=== PATIENT | male | born 1965 | race Caucasian/White ===

== ENCOUNTER 2021-09-09 09:52 | Outpatient (CLI) | payer OTHER, SELFPAY ==
--- NOTE | ~2021-09-09 | CT_ITS ---
EXAMINATION: CT lung screening DATE: 09/09/2021 10:19 INDICATION: History of tobacco use. They pain. TECHNIQUE: Computed tomography (CT) of the chest was performed without intravenous contrast. The dose -length product was 134.84 mGy-cm. Automated exposure control and iterative reconstruction technique were employed. COMPARISON: No prior studies for comparison. FINDINGS: No thoracic lymphadenopathy. Heart size normal. There is atherosclerosis of the coronary ar teries. The upper abdomen is unremarkable. No endobronchial lesions. No pneumothorax. No focal airspa ce consolidation. Mild emphysema. No pulmonary nodules. Mild thoracic spondylosis. No acute osseous a bnormality. Visualized aspects of the upper abdomen are unremarkable. IMPRESSION: 1. Lung-RADS category 1: Negative. Continue annual screening with noncontrast low-dose chest CT in 12 months. Reviewed, dictated and finalized at location A. IMPRESSION: 1. Lung-RADS category 1: Negative. Continue annual screening with noncontrast l ow-dose chest CT in 12 months.
== END 2021-09-09 09:53 | disposition home or self-care (01) ==
PROVIDERS: PCP Internal Medicine; Visit Provider Nurse Practitioner
DX: Z12.2 Encounter for screening for malignant neoplasm of respiratory organs (principal); Z87.891 Personal history of nicotine dependence
CPT/HCPCS: 71271

== ENCOUNTER 2024-12-12 06:11 | Day surgery (SDC) | payer OTHER, SELFPAY ==
[2024-05-20 09:15] VITALS: BMI 31.4
[2024-11-29 11:27] VITALS: BMI 31.6
[2024-12-12 06:45] VITALS: BMI 32.4
[2024-12-12 06:56] VITALS: BP 123/90; PULSE 73; RESP 16; TEMP 36.4; O2SAT 96
--- NOTE | 2024-12-12 07:10 | P.PNAN_ITS ---
Anes - Initial Pre Proc Eval Procedure: Operation Date: 12/12/24 08:00 Proposed Procedures p Screening Colonoscopy - Chace Eaton MD Date/Time: 12/12/24 07:10 Surgeon: Chace Eaton MD Pre Op Diagnosis: Neoplasm Screening Patient Data Age: 59 Gender: M Height: 1.78 m Weight: 102.5 kg Last Vital Signs Temp 97.5 F L 12/12/24 06:56 Pulse 73 12/12/24 06:56 Resp 16 12/12/24 06:56 BP 123/90 12/12/24 06:56 Pulse Ox 96 12/12/24 06:56 O2 Del Method Room Air 12/12/24 06:56 Allergies Allergy/AdvReac Type Severity Reaction Status Date / Time No Known Allergies Allergy Verified 12/12/24 06:45 Home Medications ?Medication ?Instructions ?Recorded ?Confirmed ?Type fluticasone 100 mcg-salmeterol 50 1 ea inhalation Q12H PRN asthma 04/28/23 12/12/24 Rx mcg/dose blistr powdr for #60 ea inhalation (Advair Diskus) albuterol sulfate 90 mcg/actuation 1 inh inhalation Q4 H PRN shortness 11/29/24 12/12/24 History aerosol inhaler of breath or wheezing tadalafil 20 mg tablet 20 mg PO DAILY PRN sexual ac tivity 11/29/24 12/12/24 History valacyclovir 500 mg tablet 500 mg PO Q12H PRN cold sor es 11/29/24 12/12/24 History Patient hx anesthesia problems: none Family hx anesthesia problems: none Results Review: All pre-operative results and documents have been reviewed as part of the pre- operative evaluation. 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 Herpes Allergies Asthma Cat scratch fever Diverticulitis Erectile dysfunction Genital herpes in men Family History Family History Mother COPD (chronic obstructive pulmonary disease) Kidney stone Other Diabetes mellitus Family history of cardiovascular disease Hypertension Social History Social History (Updated 05/13/24 @ 09:13 by Katherine Carrasquillo CMA) Smoking status: Current some day smoker Tobacco type: cigars Smokeless tobacco user: dissolvable tobacco Alcohol intake: current Drinks per week: 2 Alcohol use details: 1-2 drinks a week Substance use: never Substance use type: does not use Lack of Transportation: No Lack of Food: Never True Current Housing: I Have Housing Concerned About Future Housing: No Difficulty Paying Gas/Electric Bills: No Difficulty Paying for Meds: No Currently Unemployed: No Education: Trade/Vocational Certificate Difficulty w/ Childcare or Family Care: No Living arrangements: alone Spiritual care concerns: No Anes - Eval Final PreProcedure Day of Procedure 12/12/24 07:10 Heart: regular rate and rhythm Lungs: clear to auscultation Airway: Mallampati scale class IV Neurological: alert and oriented Last oral intake: >/= 8 hours Anesthetic plan: proceed Anesthesia type and monitoring: monitored anesthesia care Results Review: All pre-operative results and documents have been reviewed as part of the pre- operative evaluation. Informed Consent: The patient's anesthetic plan and its attendant risks and benefits were discussed with the patient/family/POA. Questions were solicited and answers provided to the satisfaction of the patient/family/POA.
[2024-12-12] MEDS: LACTATED RINGERS 1,000 ML 150 ML IV CONT (07:11)
--- NOTE | 2024-12-12 08:04 | P.HP_ITS ---
H&P: HPI History of Present Illness Date/Time: 12/12/24 08:04 Chief Complaint: Screening colonoscopy Narrative: This is the patient's first colonoscopy. There are no GI symptoms and there is no family history of colorectal cancer. 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 Herpes Allergies Asthma Cat scratch fever Diverticulitis Erectile dysfunction Genital herpes in men Family History Family History Mother COPD (chronic obstructive pulmonary disease) Kidney stone Other Diabetes mellitus Family history of cardiovascular disease Hypertension Social History Social History (Updated 05/13/24 @ 09:13 by Katherine Carrasquillo CMA) Smoking status: Current some day smoker Tobacco type: cigars Smokeless tobacco user: dissolvable tobacco Alcohol intake: current Drinks per week: 2 Alcohol use details: 1-2 drinks a week Substance use: never Substance use type: does not use Lack of Transportation: No Lack of Food: Never True Current Housing: I Have Housing Concerned About Future Housing: No Difficulty Paying Gas/Electric Bills: No Difficulty Paying for Meds: No Currently Unemployed: No Education: Trade/Vocational Certificate Difficulty w/ Childcare or Family Care: No Living arrangements: alone Spiritual care concerns: No Meds Home Medications and Allergies Home Medications ?Medication ?Instructions ?Recorded ?Confirmed ?Type fluticasone 100 mcg-salmeterol 50 1 ea inhalation Q12H PRN asthma 04/28/23 12/12/24 Rx mcg/dose blistr powdr for #60 ea inhalation (Advair Diskus) albuterol sulfate 90 mcg/actuation 1 inh inhalation Q4 H PRN shortness 11/29/24 12/12/24 History aerosol inhaler of breath or wheezing tadalafil 20 mg tablet 20 mg PO DAILY PRN sexual ac tivity 11/29/24 12/12/24 History valacyclovir 500 mg tablet 500 mg PO Q12H PRN cold sor es 11/29/24 12/12/24 History Allergies Allergy/AdvReac Type Severity Reaction Status Date / Time No Known Allergies Allergy Verified 12/12/24 06:45 Vital Signs Vital Signs - 24 hr 12/12/24 06:56 Temperature 97.5 F L Pulse Rate 73 Respiratory Rate 16 Blood Pressure 123/90 Pulse Oximetry 96 Oxygen Delivery Room Air Exam Const: General: cooperative and healthy appearing Resp: Effort & Inspection: normal respiratory effort and able to speak in complete sentences Auscultation: clear to auscultation bilaterally Cardio: Rate: regular rate Rhythm: regular rhythm GI: Inspection: normal to inspection GI Palp: No No hepatosplenomegaly present Auscultation: normal bowel sounds Rectal Exam: deferred Skin: General skin exam: normal color Psych: Appearance: grossly normal Mental Status: mental status grossly normal Assessment and Plan Assessment and plan (1) Screening for colon cancer: Code(s): Z12.11 - Encounter for screening for malignant neoplasm of colon Status: Acute Assessment and Plan: The patient is deemed a good candidate for the procedure. Consent signed. Will proceed.
--- NOTE | 2024-12-12 08:30 | WPDANESPN ---
Anes - Prog Note Post-Op Date/Time: 12/12/24 08:30 Vital Signs: Last Vital Signs Temp 97.5 F L 12/12/24 06:56 Pulse 73 12/12/24 06:56 Resp 16 12/12/24 06:56 BP 123/90 12/12/24 06:56 Pulse Ox 96 12/12/24 06:56 O2 Del Method Room Air 12/12/24 06:56 Pain Score (VAS): no Patient Feedback: Patient satisfied with anesthetic care.
[2024-12-12 08:34] VITALS: BP 137/85; PULSE 86; RESP 15; O2SAT 96
[2024-12-12 08:44] VITALS: BP 146/93; PULSE 75; RESP 16; O2SAT 95
[2024-12-12 08:54] VITALS: BP 120/73; PULSE 67; RESP 18; O2SAT 95
== END 2024-12-12 09:17 | disposition home or self-care (01) ==
PROVIDERS: PCP Internal Medicine; Visit Provider Internal Medicine Gastroenterology
PROC: 0DJD8ZZ Inspection of Lower Intestinal Tract, Via Natural or Artificial Opening Endoscopic (ICD-10-PCS; CPT 45378; principal; 2024-12-12 08:00)
DX: Z12.11 Encounter for screening for malignant neoplasm of colon (principal); D12.5 Benign neoplasm of sigmoid colon; K63.5 Polyp of colon; K57.30 Diverticulosis of large intestine without perforation or abscess without bleeding
CPT/HCPCS: 45385

== ENCOUNTER 2024-12-12 09:48 | Outpatient (NON) | payer OTHER, SELFPAY ==
--- NOTE | 2024-12-12 | S_PTH ---
PATIENT: Moris Gibson Jr. LOC: [facility] #:[id number] AGE/SX: 59/M ROOM: RE12/12/[address]: Chace Eaton MD : 1965 BED: DIS: 12/12/2024 SPEC #: [id number] RECD: 12/13/24 09:54 STATUS: CHRIS REQ #: [id number] MAXIMO: 12/12/24 00:[address]: Chace Eaton DEPT: [facility] Surgical RECD BY: Josue Mittal ENTERED: 12/13/24 10:02 SP TYPE: Surgical OTHR DR: Alli Mccartney DO Tissues: A - Colon Polypectomy Procedures: Hematoxylin and Eosin Stain Gross and Microscopic Level 4
== END 2024-12-12 09:49 | disposition home or self-care (01) ==
LOC: ANHLAB 12-13 09:49
PROVIDERS: PCP Internal Medicine; Visit Provider Internal Medicine Gastroenterology
DX: Z12.11 Encounter for screening for malignant neoplasm of colon (principal)
CPT/HCPCS: 88305

== ENCOUNTER 2025-03-31 07:40 | Outpatient (CLI) | payer OTHER, SELFPAY ==
--- NOTE | 2025-05-01 08:28 | P.SLEEP_ITS ---
Sleep Study - Home Unattended Date of Study: 03/31/25 Ordering Provider: Kandice Chang APRN Interpreting Provider: Helga Miguel DO Home Sleep Study Type: Watch PAT Height: 1.78 m Weight: 102.058 kg Body Mass Index: 32.3 Neck Circumference (inches): 18 [place]: 13 Reason for Sleep Study Daytime hypersomnia Sleep History The patient is a 60-year-old male that had a sleep study ordered for evaluation of sleep apnea. The patient admits to snoring loudly, excessive daytime sleepiness, interruptions in breathing while asleep and trouble maintaining sleep. He does choke or gasp at night. He does have trouble breathing on his back. He denies morning headaches. He does have a dry or sore mouth /throat in the morning. He does have nocturnal heartburn. He denies nocturia. He denies having difficulty falling asleep. He denies having difficulty returning to sleep if he wakes up throughout the night. He denies any hypnotic or sedative use. He denies feeling anxious about sleep. He does feel tired or sleepy during the day. He does feel tired in the morning. He does have the urge to fall asleep during the day. He denies feeling drowsy while driving. He denies sleep paralysis, cataplexy and hypnagogic/ hypnopompic hallucinations. He denies clenching or grinding his teeth. He denies kicking or jerking his legs excessively. He denies having a restless feeling in his legs. He goes to bed at 10:30 p.m. on work days and at 11:00 p.m. on his days off. It takes him 15 minutes to fall asleep. He gets 8 hours of sleep per night. His sleep is a little more restorative on days off. He denies taking any planned naps. He denies dream enactment behavior. He denies sleep walking. He consumes 3-4 cups of caffeinated beverage per day. He consumes 1 alcoholic beverage 1-2 nights per week. He smokes less than 5 cigarettes per day. He denies exercising on a regular basis. 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 Herpes Allergies Asthma Cat scratch fever Diverticulitis Erectile dysfunction Genital herpes in men Family History Family History Mother COPD (chronic obstructive pulmonary disease) Kidney stone Father Malignant neoplasm of prostate Other Diabetes mellitus Family history of cardiovascular disease Hypertension Social History Social History Smoking status: Current some day smoker Tobacco type: cigars Smokeless tobacco user: dissolvable tobacco Alcohol intake: current Drinks per week: 2 Alcohol use details: 1-2 drinks a week Substance use: never Substance use type: does not use Lack of Transportation: No Lack of Food: Never True Current Housing: I Have Housing Concerned About Future Housing: No Difficulty Paying Gas/Electric Bills: No Difficulty Paying for Meds: No Currently Unemployed: No Education: Trade/Vocational Certificate Difficulty w/ Childcare or Family Care: No Living arrangements: alone Spiritual care concerns: No Medications Home Medications ?Medication ?Instructions ?Recorded ?Confirmed ?Type fluticasone 100 mcg-salmeterol 50 1 ea inhalation Q12H PRN asthma 04/28/2303/13 Rx mcg/dose blistr powdr for #60 ea inhalation (Advair Diskus) albuterol sulfate 90 mcg/actuation 1 inh inhalation Q4 H PRN shortness 11/29/24 03/13/25 History aerosol inhaler of breath or wheezing tadalafil 20 mg tablet 20 mg PO DAILY PRN sexual ac tivity 11/29/24 03/13/25 History valacyclovir 500 mg tablet 500 mg PO Q12H PRN cold sor es 11/29/24 03/13/25 History Sleep Procedure The sleep study was completed using [employer] a technically adequate device with seven channels: peripheral arterial tone, actigraphy, body position, snore, respiratory movement, pulse oximetry, sleep staging, and heart rate. Prior to using the device, the patient received verbal and written instructions for its application and was provided with the help desk phone number for additional telephonic instruction with 24-hour availability of qualified personnel to answer questions. The study was scored using CMS guidelines. Sleep Architecture The total recording time is 9 hrs, 11 min. The total sleep time is 8 hrs, 41 min. Sleep latency is 25 minutes. REM latency is 67 minutes. The patient had 1 episodes of waking. Sleep architecture shows 7.5% deep sleep, 69.0% light sleep, and (as % Total Sleep Time) showed NREM (Light 69.0%; Deep 7.5%), and a 23.5% stage REM. The patient spent 35.3% of total sleep time in the supine position. Sleep efficiency was 94.56. Respiratory Analysis The overall AHI (pAHI 4%:) is 65.6. The overall AHI (pAHI 3%:) is 68.6. The central AHI is 1.4. The AHI was 71.1 in NREM and 61.0 in REM sleep. The AHI was 74.4 in Supine and 65.6 in Non-supine sleep. Percent of [place] respirations is 0.0. Oximetry Data The oxygen desaturation index (FARIHA 4%:) is 63.5. The mean saturation is 91%, and the lowest saturation is 71%. Time spent with saturation < 88% is 77.5 minutes. Snoring Profile Snoring average intensity is 50 dB. The patient snored above 45 decibels for 307.2 minutes, 58.9% of sleep time. Cardiac Profile The average pulse rate is 68 beats per minutes. The lowest pulse rate is 51 bpm. The highest pulse rate reported is 122 bpm. Atrial fibrillation was not detected. Premature beats occur <0.1 per minute. Assessment and Plan Assessment and Plan (1) JOSE (obstructive sleep apnea): Code(s): G47.33 - Obstructive sleep apnea (adult) (pediatric) Status: Acute Assessment and Plan: The patient had an overall AHI of 65.6 with desaturation down to 71%. This is consistent with severe sleep apnea. Due to the severity of the patient's sleep apnea as well as the length of time he spent with an SpO2 <88%, he is not a candidate for AutoPAP. I recommend that the patient have a CPAP Titration study with the use of a hypnotic to ensure we obtain enough sleep data and find an optimal pressure setting. Data The data obtained during this sleep study is adequate for interpretation. Certification This sleep study has been reviewed by a board certified sleep medicine physician.
[2025-05-01 14:24] VITALS: BMI 32.3
== END 2025-04-03 12:13 | disposition home or self-care (01) ==
LOC: ANHCSM 07:41
PROVIDERS: PCP Internal Medicine; Visit Provider Nurse Practitioner
DX: G47.9 Sleep disorder, unspecified (principal); G47.33 Obstructive sleep apnea (adult) (pediatric)
CPT/HCPCS: 95800